=== PATIENT | female | born 1995 | race Caucasian/White ===

== ENCOUNTER 2019-04-24 14:16 | Emergency (ER) | payer OTHER ==
[2019-04-24 14:33] VITALS: BP 116/71
--- NOTE | 2019-04-24 14:34 | Event Note ---
ED Screening Note Date of service: 04/24/19 Time: 14:31 ED Screening Note: This is a 24 y.o. F. that presents to the ER with vaginal spotting since yesterday. She is 7 weeks gestation. Reports abdominal cramping yesterday now resolved. LMP 03/07/[address] [employer] Johnston This initial assessment/diagnostic orders/clinical plan/treatment(s) is/are subject to change based on patients health status, clinical progression and re- assessment by fellow clinical providers in the ED. Further treatment and workup at subsequent clinical providers discretion. Patient/guardian urged not to elope from the ED as their condition may be serious if not clinically assessed and managed. Initial orders include: Labs and OB US
[2019-04-24 15:01] LABS: Basophils % (Auto) 0.6 % (0.0-1.8); Eosinophils # (Auto) 0.2 K/mm3 (0.0-0.4); Eosinophils % (Auto) 4.1 % (0.0-4.3); Hematocrit 43.6 % (30.3-42.9); Hemoglobin 14.5 gm/dl (10.1-14.3); Lymphocytes # (Auto) 1.3 K/mm3 (1.2-5.4); Lymphocytes % (Auto) 30.5 % (13.4-35.0); Mean Corpuscular HGB Conc 33 % (30-34); Mean Corpuscular Volume 85 fl (79-97); Monocytes # (Auto) 0.4 K/mm3 (0.0-0.8); Monocytes % (Auto) 9.4 % (0.0-7.3); Platelet Count 223 K/mm3 (140-440); Red Blood Count 5.12 M/mm3 (3.65-5.03); Red Cell Distribution Width 13.9 % (13.2-15.2)
--- NOTE | 2019-04-24 15:03 | Emergency Department Report ---
HPI - General Chief Complaint: Vaginal Bleeding Time Seen by Provider: 04/24/19 14:30 - HPI HPI: 24-year-old female presents to the emergency department with complaint of some vaginal spotting and mild pelvic cramping that has been going on since last nigh t. The patient is currently about 7 weeks . She had a ultrasound done with her TRAINING SPECIALIST, Dr. Johnston, about 1.5 weeks ago that confirmed the intrauterine . Otherwise she denies any past medical history. She is on vitamins. She has not taken anything for her symptoms prior to arrival today. ED Past Medical Hx - Past Medical History Previous Medical History?: No - Surgical History Past Surgical History?: No - Social History Smoking Status: Never Smoker Substance Use Type: None - Medications Home Medications: Home Medications Medication Instructions Recorded Confirmed Last Taken Type Nitrofurantoin [place]/M-Cryst 100 mg PO Q12HR #14 capsule 04/24/19 Unknown Rx [Macrobid CAP] ED Review of Systems ROS: Stated complaint: 7WKS /SPOTTING Other details as noted in HPI Comment: All other systems reviewed and negative Constitutional: denies: chills, fever Respiratory: denies: cough, shortness of breath Gastrointestinal: denies: nausea, vomiting Genitourinary: other (vaginal bleeding). denies: discharge Musculoskeletal: denies: back pain, arthralgia Neurological: denies: headache, weakness Physical Exam - Physical Exam Vital Signs: Vital Signs 04/24/19 14:31 Temperature 98.2 F Pulse Rate 96 H Respiratory 18 Rate Blood Pressure 116/71 [Right] O2 Sat by Pulse 99 Oximetry Physical Exam: GENERAL: The patient is well-developed well-nourished. HENT: Normocephalic. Atraumatic. Patient has moist mucous membranes. EYES: Extraocular motions are intact. NECK: Supple. Trachea is midline. CHEST/LUNGS: Clear to auscultation. There is no respiratory distress noted. HEART/CARDIOVASCULAR: Regular. There is no tachycardia. There is no murmur. ABDOMEN: Abdomen is soft, nontender. Patient has normal bowel sounds. There is no abdominal distention. SKIN: Skin is warm and dry. NEURO: The patient is awake, alert, and oriented. The patient is cooperative. The patient has no focal neurologic deficits. The patient has normal speech. MUSCULOSKELETAL: There is no tenderness or deformity. There is no evidence of acute injury. ED Course Vital Signs 04/24/19 14:31 Temperature 98.2 F Pulse Rate 96 H Respiratory 18 Rate Blood Pressure 116/71 [Right] O2 Sat by Pulse 99 Oximetry ED Medical Decision Making - Lab Data Result diagrams: 04/24/19 14:42 - Radiology Data Radiology results: report reviewed Obstetrical ultrasound. 04/14/2019. HISTORY: . Bleeding. FINDINGS: Imaging was performed transabdominally and endovaginally. FINDINGS: The uterus measures 9.5 x 5 x 7.2 cm. The endometrial stripe is thickened measuring 2 cm. A gestational sac contains contains a pole dated 6 weeks 3 days. heart tones are 125 bpm. Right ovary measures 3.5 x 2.4 x 3.6 cm and contains a 2.5 cm complex lesion. Left ovary measures 2.8 x 1.3 x 4 cm. IMPRESSION: 1. Early viable intrauterine dated 6 weeks 3 days. 2. Probable corpus luteum cyst right ovary. - Medical Decision Making This patient presents to the emergency department with some vaginal spotting while . Labs are mostly unremarkable except for a very mild urinary tract infection that will be treated with Macrobid. Obstetric ultrasound shows a live intrauterine and what appears to be a right-sided corpus luteal cyst. The patient has good follow-up with Dr. Johnston. She will continue vitamins and will follow-up with her TRAINING SPECIALIST. We discussed the diagnosis of threatened miscarriage. She will return to the ER with any wor sening of her symptoms or any acute distress. - Differential Diagnosis , threatened miscarriage, spontaneous miscarriage, fibroids Critical Care Time: No Critical care attestation.: If time is entered above; I have spent that time in minutes in the direct care of this critically ill patient, excluding procedure time. ED Disposition Clinical Impression: Threatened miscarriage Qualifiers: Weeks of gestation: less than 8 weeks Qualified Code(s): Z3A.01 - Less than 8 weeks gestation of UTI (urinary tract infection) Qualifiers: Urinary tract infection type: acute cystitis Hematuria presence: without hematuria Qualified Code(s): N30.00 - Acute cystitis without hematuria Disposition: - TO HOME OR SELFCARE Is pt being admited?: No Condition: Stable Instructions: Threatened Miscarriage (ED), (ED), Urinary Tract Infection in Women (ED) Additional Instructions: Please follow-up with your TRAINING SPECIALIST in the next few days. Return to the emergency Department with any worsening of your symptoms, including increased vaginal bleeding, increased or sharp abdominal/pelvic pains, or any acute distress. Prescriptions: Nitrofurantoin [place]/M-Cryst [Macrobid CAP] 100 mg PO Q12HR #14 capsule Referrals: STEVE JOHNSTON MD [Staff Physician] - 3-5 Days
[2019-04-24 16:24] LABS: Bilirubin,Urine NEG (Negative); Color,Urine Yellow (Yellow); Protein,Urine <15 mg/dL mg/dL (Negative); Urobilinogen,Urine < 2.0 mg/dL (<2.0)
[2019-04-24 16:34] LABS: Blood,Urine MOD (Negative)
[2019-04-24] MEDS ORDERED: MACROBID PO ONE (16:44)
--- NOTE | 2019-04-24 17:30 | Ultrasound Report ---
Obstetrical ultrasound. 04/14/2019. HISTORY: . Bleeding. FINDINGS: Imaging was performed transabdominally and endovaginally. FINDINGS: The uterus measures 9.5 x 5 x 7.2 cm. The endometrial stripe is thickened measuring 2 cm. A gestational sac contains contains a pole dated 6 weeks 3 days. heart tones are 125 bpm. Right ovary measures 3.5 x 2.4 x 3.6 cm and contains a 2.5 cm complex lesion. Left ovary measures 2.8 x 1.3 x 4 cm. IMPRESSION: 1. Early viable intrauterine dated 6 weeks 3 days. 2. Probable corpus luteum cyst right ovary. Signer Name: Dar Ritchie MD Signed: 04/24/2019 5:25 PM Workstation Name: [id number]
== END 2019-04-24 17:42 | disposition home or self-care (01) ==
LOC: ED 14:16
DX: O20.0 Threatened abortion (principal); O23.41 Unspecified infection of urinary tract in pregnancy, first trimester; Z3A.01 Less than 8 weeks gestation of pregnancy; Z79.899 Other long term (current) drug therapy
CPT/HCPCS: 36415; 76801; 76817; 81001; 84702; 84703; 85025; 86900; 86901; 87086; 99284

== ENCOUNTER 2019-04-29 20:08 | Emergency (ER) | payer OTHER ==
[2019-04-29 20:43] VITALS: BP 106/59
--- NOTE | 2019-04-29 20:45 | Event Note ---
ED Screening Note Date of service: 04/29/19 Time: 20:42 ED Screening Note: 24 y/o female wants a US since she has not heard the baby heart beat. Has some spotting. No pads. Lmp 03/12/19. Was seen at her OB today. This initial assessment/diagnostic orders/clinical plan/treatment(s) is/are subject to change based on patients health status, clinical progression and re- assessment by fellow clinical providers in the ED. Further treatment and workup at subsequent clinical providers discretion. Patient/guardian urged not to elope from the ED as their condition may be serious if not clinically assessed and managed. Initial orders include:
--- NOTE | 2019-04-29 21:48 | Ultrasound Report ---
US OB transvaginal, US OB <= 14 weeks fetus INDICATION / CLINICAL INFORMATION: did not hear the baby heart beat. COMPARISON: None available. FINDINGS: Transabdominal and transvaginal imaging were performed. A single gestational sac is identified within the uterus, containing a pole, with crown-rump le ngth measuring 5.0 mm, corresponding to a gestational age of 6 weeks 2 days. heart rate could not be identified. Right ovary contains a 1.8 cm cyst. Left ovary cannot be identified. No free fluid. IMPRESSION: 1. Single intrauterine , approximately 6 weeks 2 days gestation. However, no heartbeat can be demonstrated, indicating demise. Signer Name: John Walters MD Signed: 04/29/2019 9:44 PM Workstation Name: [id number]
[2019-04-30] MEDS ORDERED: TYLENOL PO ONE (02:46)
[2019-04-30 02:59] LABS: Basophils % (Auto) 0.7 % (0.0-1.8); Eosinophils # (Auto) 0.3 K/mm3 (0.0-0.4); Eosinophils % (Auto) 6.4 % (0.0-4.3); Hematocrit 41.6 % (30.3-42.9); Lymphocytes # (Auto) 1.4 K/mm3 (1.2-5.4); Lymphocytes % (Auto) 33.3 % (13.4-35.0); Mean Corpuscular HGB Conc 34 % (30-34); Mean Corpuscular Volume 85 fl (79-97); Monocytes # (Auto) 0.4 K/mm3 (0.0-0.8); Monocytes % (Auto) 9.9 % (0.0-7.3); Platelet Count 228 K/mm3 (140-440); Red Blood Count 4.91 M/mm3 (3.65-5.03); Red Cell Distribution Width 13.4 % (13.2-15.2)
[2019-04-30 03:17] LABS: Alanine Aminotransferase 11 units/L (7-56); Albumin 4.5 g/dL (3.9-5); BUN/Creatinine Ratio 18; Blood Urea Nitrogen 9 mg/dL (7-17); Calcium 9.6 mg/dL (8.4-10.2); Hemolysis Index 17
[2019-04-30 04:38] LABS: Bacteria,Urine 1+ /HPF (Negative); Bilirubin,Urine NEG (Negative); Blood,Urine NEG (Negative); Color,Urine Yellow (Yellow); Mucus,Urine 3+ /HPF; Protein,Urine <15 mg/dL mg/dL (Negative); Urobilinogen,Urine < 2.0 mg/dL (<2.0)
--- NOTE | 2019-04-30 04:54 | Emergency Department Report ---
ED Female HPI - General Chief complaint: Vaginal Bleeding Stated complaint: 7WEEKS PREG/SPOTTING Time Seen by Provider: 04/29/19 20:41 Source: patient Mode of arrival: Ambulatory Limitations: No Limitations - History of Present Illness Initial comments: Patient is air A0 24-year-old [place] female who is approximately 7 weeks gestation who presents to ED with complaint of acute onset persistent pelvic pain with vaginal bleeding intermittently for the last 3 days. Patient states that the patient has worsened in the last 12 hours. Patient states that she was at [facility]POR[facility]ICER physician's office about 8-10 hours ago where a transvaginal ultrasound was performed and it showed normal heart rate. The patient states that she was advised to come to the ED for further evaluation. Patient denies nausea, vomiting, fever, chills, traumatic injury, heavy lifting, diarrhea or low back pain. MD Complaint: vaginal bleeding, pelvic pain -: Sudden, days(s) (3) Location: suprapubic Radiation: non-radiating Severity: moderate Severity scale (0 -10): 6 Quality: cramping, sharp Consistency: constant Improves with: none Worsens with: none Are you Now?: Yes (7 WEEKS GESTATION) Associated Symptoms: denies other symptoms, vaginal bleeding, abdominal pain. denies: vaginal discharge, nausea/vomiting, fever/chills, headaches, loss of appetite, dysuria, hematuria, rash, shortness of breath, syncope, weakness, other - Related Data Sexually active: Yes : 1 Para: 0 A: 0 Previous Rx's Medication Instructions Recorded Last Taken Type Nitrofurantoin [place]/M-Cryst 100 mg PO Q12HR #14 capsule 04/24/19 Unknown Rx [Macrobid CAP] Acetaminophen [Tylenol] 500 mg PO Q6HR PRN #30 tablet 04/30/19 Unknown Rx Allergies Allergy/AdvReac Type Severity Reaction Status Date / Time No Known Allergies Allergy Verified 04/24/19 14:32 ED Review of Systems ROS: Stated complaint: 7WEEKS PREG/SPOTTING Other details as noted in HPI Constitutional: denies: chills, fever Eyes: denies: eye pain, eye discharge, vision change ENT: denies: ear pain, throat pain Respiratory: denies: cough, shortness of breath, wheezing Cardiovascular: denies: chest pain, palpitations Endocrine: no symptoms reported Gastrointestinal: abdominal pain (suprapubic). denies: nausea, diarrhea Genitourinary: abnormal menses, other (vaginal bleeding). denies: urgency, dysuria, discharge Musculoskeletal: denies: back pain, joint swelling, arthralgia Skin: denies: rash, lesions Neurological: denies: headache, weakness, paresthesias Psychiatric: denies: anxiety, depression Hematological/Lymphatic: denies: easy bleeding, easy bruising ED Past Medical Hx - Past Medical History Previous Medical History?: No - Surgical History Past Surgical History?: No - Social History Smoking Status: Never Smoker Substance Use Type: None - Medications Home Medications: Home Medications Medication Instructions Recorded Confirmed Last Taken Type Nitrofurantoin [place]/M-Cryst 100 mg PO Q12HR #14 capsule 04/24/19 Unknown Rx [Macrobid CAP] Acetaminophen [Tylenol] 500 mg PO Q6HR PRN #30 tablet 04/30/19 Unknown Rx ED Physical Exam - General Limitations: No Limitations General appearance: alert, in no apparent distress - Head Head exam: Present: atraumatic, normocephalic, normal inspection - Eye Eye exam: Present: normal appearance, PERRL, EOMI. Absent: conjunctival injection Pupils: Present: normal accommodation - ENT ENT exam: Present: normal exam, normal orophraynx, mucous membranes moist, TM's normal bilaterally, normal external ear exam - Neck Neck exam: Present: normal inspection, full ROM. Absent: tenderness, lymphadenopathy - Respiratory Respiratory exam: Present: normal lung sounds bilaterally. Absent: respiratory distress, wheezes, rhonchi, chest wall tenderness, accessory muscle use, decreased breath sounds, prolonged expiratory - Cardiovascular Cardiovascular Exam: Present: regular rate, normal rhythm, normal heart sounds. Absent: systolic murmur, diastolic murmur, rubs, gallop - GI/Abdominal GI/Abdominal exam: Present: soft, tenderness (suprapubic), normal bowel sounds. Absent: guarding, rebound, hyperactive bowel sounds, hypoactive bowel sounds, organomegaly - Rectal Rectal exam: Present: deferred - Bi-manual exam: Present: other (deferred) - Extremities Exam Extremities exam: Present: normal inspection, full ROM, normal capillary refill - Back Exam Back exam: Present: normal inspection, full ROM. Absent: tenderness, CVA tenderness (R), CVA tenderness (L), muscle spasm - Neurological Exam Neurological exam: Present: alert, oriented X3, CN II-XII intact, normal gait, reflexes normal - Psychiatric Psychiatric exam: Present: normal affect, normal mood, anxious - Skin Skin exam: Present: warm, dry, intact, normal color. Absent: rash ED Course Vital Signs 04/29/19 20:40 Temperature 97.9 F Pulse Rate 95 H Respiratory 16 Rate Blood Pressure 106/59 O2 Sat by Pulse 99 Oximetry - Reevaluation(s) Reevaluation #1: 04/30/19 04:58 This is a 24-year-old female who is approximately 7 weeks gestation and who presented to the ED with pelvic pain and vaginal bleeding. Labs were drawn including urinalysis and patient was treated for pain in the ED with Tylenol. Transvaginal ultrasound was also ordered. Lab tests results [place] [id number]. The transvaginal ultrasound shows a single gestational sac within the uterus which contains a pole with a crown-rump length measuring 5.0 mm corresponding to a gestational age of 6 weeks and 2 days. However the heart rate could not be identified in this test, indicating a possible demise. Patient was discharged home on Tylenol and advised to maintain pelvic rest and to follow-up with the [facility]POR[facility] [employer] [employer]ICER physician in 2 days or return to the ED for repeat of the hCG Quant studies. Patient was advised to return to the ED immediately if symptoms get worse. 04/30/19 05:00 ED Medical Decision Making - Lab Data Result diagrams: 04/30/19 02:45 04/30/19 02:45 - Radiology Data Radiology results: report reviewed, image reviewed The transvaginal ultrasound shows a single gestational sac within the uterus which contains a pole with a crown-rump length measuring 5.0 mm correspond ing to a gestational age of 6 weeks and 2 days. However the heart rate could not be identified in this test, indicating a possible demise. - Medical Decision Making This is a 24-year-old female who is approximately 7 weeks gestation and who presented to the ED with pelvic pain and vaginal bleeding. Labs were drawn including urinalysis and patient was treated for pain in the ED with Tylenol. Transvaginal ultrasound was also ordered. Lab tests [place] [id number]. The transvaginal ultrasound shows a single gestational sac within the uterus which contains a pole with a crown-rump length measuring 5.0 mm corresponding to a gestational age of 6 weeks and 2 days. However the heart rate could not be identified in this test, indicating a possible demise. Patient was discharged home on Tylenol and advised to maintain pelvic rest and to follow-up with the [employer] physician in 2 days or return to the ED for repeat of the hCG Quant studies. Patient was advised to return to the ED immediately if symptoms get worse. - Differential Diagnosis Threatened miscarriage; demise; Pelvic pain, vaginal bleeding Critical care attestation.: If time is entered above; I have spent that time in minutes in the direct care of this critically ill patient, excluding procedure time. ED Disposition Clinical Impression: Threatened miscarriage in early , Vaginal bleeding affecting early Abdominal pain during Qualifiers: Trimester: first trimester Qualified Code(s): O26.891 - Other specified related conditions, first trimester; R10.9 - Unspecified abdominal pain Disposition: TO HOME OR SELFCARE Is pt being admited?: No Does the pt Need Aspirin: No Condition: Stable Instructions: Threatened Miscarriage (ED), Abdominal Pain in (ED) Additional Instructions: MAINTAIN COMPLETE PELVIC REST, TAKE PAIN MEDICATIONS NEEDED FOR PAIN, DRINK PLENTY OF FLUIDS AND FOLLOW UP WITH YOUR [employer]CH[employer] PHYSICIAN OR RETURN TO THE ED IN 2 DAYS FOR REPEAT HCG QUANT STUDIES TO CONFIRM THE VIABILITY OF THE Prescriptions: Acetaminophen [Tylenol] 500 mg PO Q6HR PRN #30 tablet PRN Reason: Pain , Severe (7-10) Referrals: STEVE REYNOLDS MD [Primary Care Provider] - 3-5 Days Time of Disposition: 04:53 Print Language: JAPANESE
== END 2019-04-30 05:00 | disposition home or self-care (01) ==
LOC: ED 20:08
DX: O20.0 Threatened abortion (principal); Z79.899 Other long term (current) drug therapy; Z3A.01 Less than 8 weeks gestation of pregnancy
CPT/HCPCS: 36415; 76801; 76817; 80053; 81001; 83690; 84702; 85025; 86900; 86901

== ENCOUNTER 2019-05-01 19:48 | Emergency (ER) | payer OTHER ==
--- NOTE | 2019-05-01 20:24 | Emergency Department Report ---
Blank Doc - Documentation Documentation: This is a 24-year-old female that presents with nydia test. This initial assessment/diagnostic orders/clinical plan/treatment(s) is/are subject to change based on patient's health status, clinical progression and re- assessment by fellow clinical providers in the ED. Further treatment and workup at subsequent clinical providers discretion. Patient/guardians urged not to elope from the ED as their condition may be serious if not clinically assessed and managed. Initial orders include: 1- Patient sent to [facility] for further evaluation and treatment 2- quant test
[2019-05-01 20:28] VITALS: BP 126/85
[2019-05-02 00:31] LABS: Bilirubin,Urine NEG (Negative); Blood,Urine MOD (Negative); Color,Urine Yellow (Yellow); Mucus,Urine FEW /HPF; Protein,Urine <15 mg/dL mg/dL (Negative); Urobilinogen,Urine < 2.0 mg/dL (<2.0)
--- NOTE | 2019-05-02 01:14 | Ultrasound Report ---
OB ultrasound COMPARISON: 04/29/2019 probably intrauterine is again seen with pole corresponding to a n MA of 6 weeks 2 days for an MATHEUS of 12/26/2019. On today's exam there is a questionable heart ra te of only 76 bpm. No hemorrhage or free fluid. Left ovary is normal. Right ovary contains a somewhat thick-walled 2.4 x 2.3 x 1.2 cm cyst presumably corpus luteum cyst. IMPRESSION: Questionable faint heart tones are detected today. Right ovarian corpus luteum cyst . Signer Name: Surjit Martinez MD Signed: 05/02/2019 1:09 AM Workstation Name: [id number]
--- NOTE | 2019-05-02 01:26 | Emergency Department Report ---
ED HPI - General Chief complaint: Urogenital-Female Stated complaint: NO BABY HEARTBEAT Time Seen by Provider: 05/01/19 20:25 Source: patient Mode of arrival: Ambulatory Limitations: No Limitations - History of Present Illness Initial comments: pt 24-year-old female who presents for vaginal spotting is 5 weeks here today for repeat hCG level patient states intermittent pink spotting no fever no chills no nausea vomiting no back pain states she's is here to confirm has follow-up with [facility] MD Complaint: vaginal bleeding Onset/Timin -: week(s) Location: abdomen Radiation: LLQ, RLQ Severity: moderate Severity scale (0 -10): 3 Quality: cramping Consistency: intermittent Improves with: none Worsens with: none Associated symptoms: vaginal bleeding, abdominal pain. denies: vaginal discharge Vaginal bleeding: light :: Yes Number of weeks : 5 OB History - Current : other (1st ) Last menstrual period: 03/04/19 Pre- care: followed by OB - Related Data Previous Rx's Medication Instructions Recorded Last Taken Type Nitrofurantoin [place]/M-Cryst 100 mg PO Q12HR #14 capsule 04/24/19 Unknown Rx [Macrobid CAP] Acetaminophen [Tylenol] 500 mg PO Q6HR PRN #30 tablet 04/30/19 Unknown Rx Allergies Allergy/AdvReac Type Severity Reaction Status Date / Time No Known Allergies Allergy Verified 04/24/19 14:32 ED Review of Systems ROS: Stated complaint: NO BABY HEARTBEAT Other details as noted in HPI Constitutional: denies: chills, fever Eyes: denies: eye pain, eye discharge, vision change ENT: denies: ear pain, throat pain Respiratory: denies: cough, shortness of breath, wheezing Cardiovascular: denies: chest pain, palpitations Endocrine: no symptoms reported Gastrointestinal: abdominal pain. denies: nausea, vomiting, diarrhea, constipation, hematemesis, melena, hematochezia Genitourinary: other (spotting pink intermittent ). denies: urgency, dysuria, frequency, hematuria, discharge Musculoskeletal: denies: back pain, joint swelling, arthralgia Skin: denies: rash, lesions Neurological: denies: headache, weakness, paresthesias Psychiatric: denies: anxiety, depression Hematological/Lymphatic: as per HPI ED Past Medical Hx - Past Medical History Previous Medical History?: Yes Additional medical history: miscarriage - Surgical History Past Surgical History?: No - Social History Smoking Status: Never Smoker Substance Use Type: None - Medications Home Medications: Home Medications Medication Instructions Recorded Confirmed Last Taken Type Nitrofurantoin [place]/M-Cryst 100 mg PO Q12HR #14 capsule 04/24/19 Unknown Rx [Macrobid CAP] Acetaminophen [Tylenol] 500 mg PO Q6HR PRN #30 tablet 04/30/19 Unknown Rx ED Physical Exam - General Limitations: No Limitations General appearance: alert, in no apparent distress - Head Head exam: Present: atraumatic, normocephalic - Eye Eye exam: Present: normal appearance, PERRL, EOMI Pupils: Present: normal accommodation - ENT ENT exam: Present: mucous membranes moist - Neck Neck exam: Present: normal inspection, full ROM. Absent: tenderness, meningismus, lymphadenopathy, thyromegaly - Respiratory Respiratory exam: Present: normal lung sounds bilaterally. Absent: respiratory distress, wheezes, stridor, chest wall tenderness - Cardiovascular Cardiovascular Exam: Present: regular rate, normal rhythm, normal heart sounds. Absent: systolic murmur, diastolic murmur, rubs, gallop - GI/Abdominal GI/Abdominal exam: Present: soft, normal bowel sounds. Absent: distended, tenderness, guarding, rebound, rigid, bruit, hernia - Expanded GI/Abdominal Exam Expanded GI/Abdominal exam: Absent: psoas sign, obturator sign, heel tap sign, Villalta's sign, Rovsing's sign, tenderness at Mcbur[place]'s Point, ascites - Rectal Rectal exam: Present: deferred - External exam: Present: other (exam deferred ) - Extremities Exam Extremities exam: Present: normal inspection, full ROM, normal capillary refill. Absent: tenderness, pedal edema, joint swelling, calf tenderness - Back Exam Back exam: Present: normal inspection, full ROM. Absent: tenderness, CVA tenderness (R), CVA tenderness (L), muscle spasm, paraspinal tenderness, vertebral tenderness, rash noted - Neurological Exam Neurological exam: Present: alert, oriented X3, CN II-XII intact, reflexes normal. Absent: motor sensory deficit - Psychiatric Psychiatric exam: Present: normal affect, normal mood - Skin Skin exam: Present: warm, dry, intact, normal color. Absent: rash ED Course Vital Signs 05/01/19 20:27 Temperature 97.9 F Pulse Rate 75 Respiratory 18 Rate Blood Pressure 126/85 O2 Sat by Pulse 100 Oximetry ED Medical Decision Making - Lab Data Lab Results 05/01/19 05/01/19 Range/Units 21:06 23:50 HCG, Quant [id number] H (0-4) mIU/mL Urine Color Yellow (Yellow) Urine Turbidity Slightly-cloudy (Clear) Urine pH 5.0 (5.0-7.0) Ur Specific [place] 1.014 (1.003-1.030) Urine Protein <15 mg/dl (Negative) mg/dL Urine Glucose (UA) Neg (Negative) mg/dL Urine Ketones Neg (Negative) mg/dL Urine Blood Mod (Negative) Urine Nitrite Neg (Negative) Urine Bilirubin Neg (Negative) Urine Urobilinogen < 2.0 (<2.0) mg/dL Ur Leukocyte Esterase Mod (Negative) Urine WBC (Auto) 4.0 (0.0-6.0) /HPF Urine RBC (Auto) 3.0 (0.0-6.0) /HPF U Epithel Cells (Auto) 4.0 (0-13.0) /HPF Urine Mucus Few /HPF - Radiology Data Radiology results: report reviewed, image reviewed Ordering Physician: SUDEEP GROSS NP Date of Service: 05/01/19 Procedure(s): US OB <= 14 weeks fetus Accession Number(s): [id number] cc: SUDEEP GROSS NP OB ultrasound COMPARISON: 04/29/2019 probably intrauterine is again seen with pole corresponding to an MA of 6 weeks 2 days for an AMTHEUS of 12/26/2019. On today's exam there is a questionable heart rate of only 76 bpm. No hemorrhage or free fluid. Left ovary is normal. Right ovary contains a somewhat thick-walled 2.4 x 2.3 x 1.2 cm cyst presumably corpus luteum cyst. IMPRESSION: Questionable faint heart tones are detected today. Right ovarian corpus luteum cyst. Signer Name: Surjit Martinez MD Signed: 05/02/2019 1:09 AM Workstation Name: [id number] Transcribed By: Dictated By: Surjit Martinez MD Electronically Authenticated By: Surjit Martinez MD Signed Date/Time: 05/02/19108 DD/ 4 TD/TT: - Medical Decision Making US : [place] IUP 6 weeks and 2 days, FHR: 76 bpm, hcg: quant: [id number], cbc normal, pt is O pos. there is no bleeding at this time , pt will follow up with pcp in 2-3 days will return to ed if symptoms worsen. Critical care attestation.: If time is entered above; I have spent that time in minutes in the direct care of this critically ill patient, excluding procedure time. ED Disposition Clinical Impression: Abdominal pain during intrauterine Qualifiers: Weeks of gestation: less than 8 weeks Qualified Code(s): Z3A.01 - Less than 8 weeks gestation of Disposition: TO HOME OR SELFCARE Is pt being admited?: No Does the pt Need Aspirin: No Condition: Stable Instructions: (ED), Ovarian Cyst (ED), Abdominal Pain in (ED) Additional Instructions: 6 weeks nd 2 days, Heart Rate is 76 bmp, Right Ovarian Cyst. follow up with your OBGYN doctor as scheduled Referrals: JOSE BRUCE MD [Staff Physician] - 3-5 Days Forms: Work/School Release Form(ED) Time of Disposition: 01:34
== END 2019-05-02 01:37 | disposition home or self-care (01) ==
LOC: ED 19:48
DX: O20.8 Other hemorrhage in early pregnancy (principal); O26.891 Other specified pregnancy related conditions, first trimester; R10.9 Unspecified abdominal pain; Z3A.01 Less than 8 weeks gestation of pregnancy
CPT/HCPCS: 36415; 76801; 76817; 81001; 84702

== ENCOUNTER 2019-05-06 02:23 | Emergency (ER) | payer OTHER ==
[2019-05-06] MEDS ORDERED: NACL 0.9% 1000 ML 1,000 ML IV ONE (02:49)
[2019-05-06] MEDS ORDERED: TORADOL ONE (03:00)
--- NOTE | 2019-05-06 03:00 | Emergency Department Report ---
ED HPI - General Chief complaint: Vaginal Bleeding Stated complaint: SEVERE VAGINAL BLEEDING/7WKS PREG Time Seen by Provider: 05/06/19 02:47 Source: patient Mode of arrival: Ambulatory Limitations: No Limitations - History of Present Illness Initial comments: 24-year-old female presents to ED with vaginal bleeding, onset tonight. Patient reports she is 7 weeks . Reports mild abdominal cramping and back pain. Patient reports last ultrasound had a heart rate in the 70s. OB: Vickie HEBERT Complaint: vaginal bleeding -: This morning Location: pelvis Radiation: back Severity: severe Quality: cramping Consistency: constant Improves with: none Worsens with: none Associated symptoms: vaginal bleeding, abdominal pain Vaginal bleeding: heavy :: Yes Number of weeks : 7 Pre-nataly care: followed by OB, previous ultrasound confi - Related Data : 1 Para: 0 Previous Rx's Medication Instructions Recorded Last Taken Type Nitrofurantoin [place]/M-Cryst 100 mg PO Q12HR #14 capsule 04/24/19 Unknown Rx [Macrobid CAP] Acetaminophen [Tylenol] 500 mg PO Q6HR PRN #30 tablet 04/30/19 Unknown Rx Naproxen [Naprosyn] 500 mg PO BID #20 tablet 05/06/19 Unknown Rx Allergies Allergy/AdvReac Type Severity Reaction Status Date / Time No Known Allergies Allergy Verified 04/24/19 14:32 ED Review of Systems ROS: Stated complaint: SEVERE VAGINAL BLEEDING/7WKS PREG Other details as noted in HPI Comment: All other systems reviewed and negative Gastrointestinal: abdominal pain Genitourinary: other (reports vag bleeding) ED Past Medical Hx - Past Medical History Previous Medical History?: Yes Additional medical history: miscarriage - Surgical History Past Surgical History?: No - Social History Smoking Status: Never Smoker Substance Use Type: None - Medications Home Medications: Home Medications Medication Instructions Recorded Confirmed Last Taken Type Nitrofurantoin [place]/M-Cryst 100 mg PO Q12HR #14 capsule 04/24/19 Unknown Rx [Macrobid CAP] Acetaminophen [Tylenol] 500 mg PO Q6HR PRN #30 tablet 04/30/19 Unknown Rx Naproxen [Naprosyn] 500 mg PO BID #20 tablet 05/06/19 Unknown Rx ED Physical Exam - General Limitations: No Limitations General appearance: alert, in no apparent distress - Head Head exam: Present: atraumatic, normocephalic - Eye Eye exam: Present: normal appearance - ENT ENT exam: Present: mucous membranes moist - Neck Neck exam: Present: normal inspection - Respiratory Respiratory exam: Present: normal lung sounds bilaterally. Absent: respiratory distress - Cardiovascular Cardiovascular Exam: Present: regular rate, normal rhythm - GI/Abdominal GI/Abdominal exam: Present: soft, tenderness (suprapubic). Absent: distended - External exam: Present: normal external exam Speculum exam: Present: vaginal bleeding, other (small amt of clots cleared from vault; no further active bleeding present) - Extremities Exam Extremities exam: Present: normal inspection - Neurological Exam Neurological exam: Present: alert, oriented X3 - Psychiatric Psychiatric exam: Present: normal affect, normal mood - Skin Skin exam: Present: warm, dry, intact, normal color ED Course Vital Signs 05/06/19 05/06/19 05/06/19 02:28 03:00 04:05 Temperature 98.3 F Pulse Rate 70 77 68 Respiratory 18 16 16 Rate Blood Pressure 104/61 Blood Pressure 111/54 104/76 [Left] O2 Sat by Pulse 100 100 100 Oximetry 05/06/19 04:08 Temperature Pulse Rate Respiratory 16 Rate Blood Pressure Blood Pressure [Left] O2 Sat by Pulse 100 Oximetry ED Medical Decision Making - Lab Data Result diagrams: 05/06/19 02:54 05/06/19 02:54 - Radiology Data Radiology results: report reviewed, image reviewed - Medical Decision Making - spontaneous miscarriage - last hCG 36,000, today level is 27,000 - US shows no IUP - slight drop in Hb from 14 to 12.6 compared to 5 days ago - currently, no active bleeding from os - spoke w/ Dr Lucas, if pt not orthostatic, can f/u at scheduled 9:15 am appt this morning - orthostatics done, vitals are stable, she is not orthostatic, will d/c at this time - Differential Diagnosis ectopic, threatened AB, complete AB Critical care attestation.: If time is entered above; I have spent that time in minutes in the direct care of this critically ill patient, excluding procedure time. ED Disposition Clinical Impression: Spontaneous miscarriage Disposition: DC- TO HOME OR SELFCARE Is pt being admited?: No Condition: Stable Instructions: Spontaneous Miscarriage (ED) Referrals: STEVE REYNOLDS MD [Primary Care Provider] - 05/06/19 Time of Disposition: 05:37
[2019-05-06 03:16] LABS: Basophils # (Auto) 0.1 K/mm3 (0.0-0.1); Basophils % (Auto) 1.1 % (0.0-1.8); Eosinophils # (Auto) 0.2 K/mm3 (0.0-0.4); Eosinophils % (Auto) 4.6 % (0.0-4.3); Hematocrit 36.7 % (30.3-42.9); Hemoglobin 12.6 gm/dl (10.1-14.3); Lymphocytes # (Auto) 1.8 K/mm3 (1.2-5.4); Lymphocytes % (Auto) 35.5 % (13.4-35.0); Mean Corpuscular HGB Conc 34 % (30-34); Mean Corpuscular Volume 85 fl (79-97); Monocytes # (Auto) 0.5 K/mm3 (0.0-0.8); Monocytes % (Auto) 9.9 % (0.0-7.3); Platelet Count 213 K/mm3 (140-440); Red Blood Count 4.35 M/mm3 (3.65-5.03); Red Cell Distribution Width 13.4 % (13.2-15.2)
[2019-05-06] MEDS ORDERED: TORADOL IV ONE (03:25)
[2019-05-06 03:44] LABS: BUN/Creatinine Ratio 25; Blood Urea Nitrogen 10 mg/dL (7-17); Calcium 9.3 mg/dL (8.4-10.2); Hemolysis Index 18
[2019-05-06 04:07] VITALS: BP 104/76
--- NOTE | 2019-05-06 04:16 | Ultrasound Report ---
OB Ultrasound HISTORY: abd pain, vag bleeding. TECHNIQUE: Grayscale and color Doppler imaging performed. COMPARISON: OB ultrasound from 05/02/2019 FINDINGS: Transabdominal and endovaginal imaging was performed. Uterus measures 9.5 x 5.2 x 6.5 cm. E ndometrial echocomplex measures 2.4 cm. There is a complex 1.9 cm cyst in the right ovary which may r epresent a functional cyst. Left ovary appears unremarkable. No intrauterine gestation identified. IMPRESSION: Previously seen intrauterine gestational sac is no longer visualized. Findings may reflec t a failed . Correlate with beta hCG level and if needed short-term follow-up pelvic ultraso und. Signer Name: Zaki Armenta MD Signed: 05/06/2019 4:11 AM Workstation Name: [id number]
== END 2019-05-06 05:49 | disposition home or self-care (01) ==
LOC: ED 02:23
DX: O03.9 Complete or unspecified spontaneous abortion without complication (principal); Z79.899 Other long term (current) drug therapy; Z3A.01 Less than 8 weeks gestation of pregnancy
CPT/HCPCS: 36415; 76801; 76817; 80048; 84702; 85025; 86850; 86900; 86901; 96374; 99284; J1885; J7030; 96361